=== PATIENT | male | born 1975 | race Asian ===

== ENCOUNTER 2017-05-01 18:57 | Emergency (ER) | payer MEDICAID ==
[~2017-05-01] VITALS: Ht 172.7 cm; Wt 88.5 kg
[2017-05-01 20:35] VITALS: BP 154/98
== END 2017-05-01 20:51 | disposition home or self-care (01) ==
LOC: ER 19:14 → EDBD 19:14 → ER 20:51
DX: J03.90 Acute tonsillitis, unspecified (principal); T78.40XA Allergy, unspecified, initial encounter; X58.XXXA Exposure to other specified factors, initial encounter